=== PATIENT | female | born 1995 | race Hispanic/Latino ===

== ENCOUNTER 2018-01-30 21:51 | Emergency (ER) | payer SELFPAY ==
[2018-01-30] MEDS ORDERED: DEXAMETHASONE SOD PHOSPHATE 10MG/ML 1ML VIAL ONE (22:25)
[2018-01-30 23:17] LABS: RAPID GROUP A STREP NEGATIVE (NEGATIVE)
== END 2018-01-31 00:15 | disposition home or self-care (01) ==
LOC: EDH 21:51
DX: J02.9 Acute pharyngitis, unspecified (principal); J02.8 Acute pharyngitis due to other specified organisms
CPT/HCPCS: 87804 ×2; 87880; 96372; 99284; J1100

== ENCOUNTER 2018-03-25 12:57 | Emergency (ER) | payer OTHER ==
[2018-03-25 13:32] LABS: APPEARANCE,URINE Clear (CLEAR); BILIRUBIN,URINE Negative (NEGATIVE); COLOR,URINE Yellow (YELLOW); GLUCOSE, URINE (UA) >=1000 mg/dL (NEGATIVE); KETONES,URINE >=80 mg/dL (NEGATIVE); LEUKOCYTE ESTERASE ,URINE Trace (NEGATIVE); NITRATE,URINE Negative (NEGATIVE); OCCULT BLOOD,URINE Negative (NEGATIVE); PH,URINE 5.5 (5.0-8.0); PROTEIN,URINE Negative (NEGATIVE); UROBILINOGEN,URINE 0.2 mg/dL (0.2-1.0)
[2018-03-25 13:43] LABS: BACTERIA,URINE Rare /HPF (None Seen); MUCUS,URINE Rare LPF (None Seen); RBC,URINE 0-1 /HPF (0-1); SQUAMOUS EPITHELIAL CELL,UR Few /HPF (0-2); YEAST,URINE BUDDING Few /HPF (None Seen)
[2018-03-25] MEDS ORDERED: PHENAZOPYRIDINE HCL 200 MG TABLET ONE (13:48)
== END 2018-03-25 14:28 | disposition home or self-care (01) ==
LOC: EDH 12:57
DX: N39.0 Urinary tract infection, site not specified (principal)
CPT/HCPCS: 81001; 81025

== ENCOUNTER 2018-08-16 10:01 | Emergency (ER) | payer MEDICAID, OTHER ==
[2018-08-16 10:26] LABS: BILIRUBIN,URINE Negative (NEGATIVE); COLOR,URINE Yellow (YELLOW); GLUCOSE, URINE (UA) Negative (NEGATIVE); KETONES,URINE Negative (NEGATIVE); LEUKOCYTE ESTERASE ,URINE Moderate (NEGATIVE); NITRATE,URINE Positive (NEGATIVE); OCCULT BLOOD,URINE Negative (NEGATIVE); PROTEIN,URINE Negative (NEGATIVE); UROBILINOGEN,URINE 0.2 mg/dL (0.2-1.0)
[2018-08-16 10:28] LABS: APPEARANCE,URINE SLIGHTLY CLOUDY (CLEAR); HCG,QUAL RESULT NEGATIVE (NEGATIVE)
[2018-08-16 10:33] LABS: AMPHET/METH SCREEN,URINE NEGATIVE (NEGATIVE); BARBITURATE SCREEN, URINE NEGATIVE (NEGATIVE); BENZODIAZEPINES SCREEN,URINE POSITIVE (NEGATIVE); CANNABINOID SCREEN,URINE POSITIVE (NEGATIVE); COCAINE SCREEN,URINE NEGATIVE (NEGATIVE); OPIATE SCREEN,URINE NEGATIVE (NEGATIVE); PHENCYCLIDINE SCREEN,URINE NEGATIVE (NEGATIVE)
[2018-08-16 10:43] LABS: BACTERIA,URINE Moderate /HPF (None Seen); MUCUS,URINE Moderate LPF (None Seen); RBC,URINE None Seen /HPF (0-1)
== END 2018-08-16 11:12 | disposition home or self-care (01) ==
LOC: EDH 10:01
DX: F12.10 Cannabis abuse, uncomplicated (principal); F13.10 Sedative, hypnotic or anxiolytic abuse, uncomplicated; N39.0 Urinary tract infection, site not specified; R42 Dizziness and giddiness
CPT/HCPCS: 80305; 81001; 81025

== ENCOUNTER 2018-08-17 12:25 | Emergency (ER) | payer MEDICAID | END 2018-08-17 13:02 | disposition home or self-care (01) | LOC: EDH 12:25 | DX: M79.10 Myalgia, unspecified site (principal); Z91.14 Patient's other noncompliance with medication regimen ==

== ENCOUNTER 2018-08-18 09:55 | Emergency (ER) | payer MEDICAID | END 2018-08-18 10:29 | disposition home or self-care (01) | LOC: EDH 09:55 | DX: R51 Headache (principal); F19.10 Other psychoactive substance abuse, uncomplicated; Z76.5 Malingerer [conscious simulation] ==

== ENCOUNTER 2020-05-30 08:53 | Emergency (ER) | payer MEDICAID ==
[2020-05-30] MEDS ORDERED: CEFTRIAXONE SODIUM 2 GM VIAL ONE (09:36)
[2020-05-30] MEDS ORDERED: LIDOCAINE HCL MPF 1% 5ML VIAL ONE (09:38)
== END 2020-05-30 10:36 | disposition home or self-care (01) ==
LOC: EDH 08:53
DX: H66.93 Otitis media, unspecified, bilateral (principal); J02.9 Acute pharyngitis, unspecified; Z33.1 Pregnant state, incidental; Z20.828 Contact with and (suspected) exposure to other viral communicable diseases
CPT/HCPCS: 81025; 96372; 99283; J0696; J3490; U0003

== ENCOUNTER 2020-07-25 10:13 | Emergency (ER) | payer MEDICAID ==
[2020-07-25 11:04] LABS: RAPID GROUP A STREP POSITIVE (NEGATIVE)
[2020-07-25] MEDS ORDERED: DEXAMETHASONE SOD PHOSPHATE 10MG/ML 1ML VIAL ONE (11:18)
[2020-07-25] MEDS ORDERED: PENICILLIN G BENZATHINE LA 1.2 MILUNITS/2 ML SYG ONE (11:19)
== END 2020-07-25 11:35 | disposition home or self-care (01) ==
LOC: EDH 10:13
DX: O26.891 Other specified pregnancy related conditions, first trimester (principal); J02.9 Acute pharyngitis, unspecified; Z20.828 Contact with and (suspected) exposure to other viral communicable diseases; J34.89 Other specified disorders of nose and nasal sinuses; F13.10 Sedative, hypnotic or anxiolytic abuse, uncomplicated; Z3A.01 Less than 8 weeks gestation of pregnancy
CPT/HCPCS: 87426; 87804 ×2; 87880; 96372; 99283; J0561; J1100; U0003

== ENCOUNTER 2021-04-10 13:37 | Emergency (ER) | payer MEDICAID ==
[~2021-04-10] VITALS: Ht 152.4 cm; Wt 72.6 kg
[2021-04-10] MEDS ORDERED: CEFTRIAXONE 1G VIAL IM STA (14:31)
[2021-04-10] MEDS ORDERED: ACETAMINOPHEN 500 MG TABLET PO ONE (14:45)
[2021-04-10 14:51] LABS: APPEARANCE,URINE Clear (CLEAR); BILIRUBIN,URINE Negative (NEGATIVE); COLOR,URINE Yellow (YELLOW); GLUCOSE, URINE (UA) Negative (NEGATIVE); KETONES,URINE Trace mg/dL (NEGATIVE); LEUKOCYTE ESTERASE ,URINE Trace (NEGATIVE); NITRATE,URINE Positive (NEGATIVE); OCCULT BLOOD,URINE Negative (NEGATIVE); PROTEIN,URINE Negative (NEGATIVE)
[2021-04-10 14:53] LABS: HCG,QUAL RESULT POSITIVE (NEGATIVE)
[2021-04-10] MEDS ORDERED: LIDOCAINE HCL-MPF 1% 2ML VIAL ONE (14:55)
[2021-04-10 14:58] LABS: BACTERIA,URINE Moderate /HPF (None Seen); RBC,URINE 0-1 /HPF (0-1)
[2021-04-10 14:59] LABS: MUCUS,URINE Rare LPF (None Seen); SQUAMOUS EPITHELIAL CELL,UR Rare /HPF (0-2)
[2021-04-10 15:03] LABS: HYALINE CASTS, URINE 0-1 /LPF (0-1 /LPF)
[2021-04-10] MEDS ORDERED: CEPH500B PO (15:12)
[2021-04-10] MEDS ORDERED: PREN-61 PO (15:12)
[2021-04-10] MEDS ORDERED: ACET-2247 PO (15:12)
[2021-04-10 15:19] VITALS: BP 139/83
== END 2021-04-10 15:27 | disposition home or self-care (01) ==
LOC: EDH 13:45
DX: O23.41 Unspecified infection of urinary tract in pregnancy, first trimester (principal); O99.511 Diseases of the respiratory system complicating pregnancy, first trimester; J06.9 Acute upper respiratory infection, unspecified; Z3A.01 Less than 8 weeks gestation of pregnancy
CPT/HCPCS: 81001; 81025; 87077; 87088; 87186; 87880; 96372; 99283; J0696; J3490

== ENCOUNTER 2021-07-16 18:22 | Emergency (ER) | payer MEDICAID ==
[~2021-07-16] VITALS: Ht 157.5 cm; Wt 90.7 kg
[~2021-07-16 18:22] MED LIST: ACET-2247 PO; CEPH500B PO; PREN-61 PO
[2021-07-16 18:24] VITALS: BP 141/89
[2021-07-16] MEDS ORDERED: CEFTRIAXONE 1G VIAL IM STA (19:29)
[2021-07-16] MEDS ORDERED: LIDOCAINE HCL-MPF 1% 2ML VIAL ONE (19:54)
[2021-07-16] MEDS ORDERED: BUDE8.43 NS (20:32)
[2021-07-16] MEDS ORDERED: AMOX-429 PO (20:32)
[2021-07-16 20:45] VITALS: BP 136/82
== END 2021-07-16 20:53 | disposition home or self-care (01) ==
LOC: EDH 18:22
DX: O26.891 Other specified pregnancy related conditions, first trimester (principal); J32.9 Chronic sinusitis, unspecified; Z20.822 Contact with and (suspected) exposure to COVID-19; Z3A.01 Less than 8 weeks gestation of pregnancy; Z79.899 Other long term (current) drug therapy
CPT/HCPCS: 87635; 87804 ×2; 87880; 96372; 99283; C9803; J0696; J3490

== ENCOUNTER 2021-08-31 16:03 | Emergency (ER) | payer MEDICAID ==
[~2021-08-31] VITALS: Ht 160 cm; Wt 113.4 kg
[~2021-08-31 16:03] MED LIST changes: +AMOX-429 PO; +BUDE8.43 NS
[2021-08-31 16:06] VITALS: BP 127/81
[2021-09-01] MEDS ORDERED: AMOX-429 PO (10:04)
== END 2021-08-31 21:08 | disposition left against medical advice (07) ==
LOC: EDH 16:03
DX: J02.9 Acute pharyngitis, unspecified (principal); Z53.21 Procedure and treatment not carried out due to patient leaving prior to being seen by health care provider

== ENCOUNTER 2021-09-01 07:57 | Emergency (ER) | payer MEDICAID ==
[~2021-09-01] VITALS: Ht 167.6 cm; Wt 113.4 kg
[2021-09-01 08:41] VITALS: BP 148/103
[2021-09-01] MEDS ORDERED: CEFTRIAXONE 1G VIAL ONE (09:56)
[2021-09-01] MEDS ORDERED: CEFTRIAXONE 1G VIAL IM ONE (10:00)
[2021-09-01] MEDS ORDERED: AMOX-429 PO (10:04)
== END 2021-09-01 10:13 | disposition home or self-care (01) ==
LOC: EEVIPCON 07:57 → EDH 07:57
DX: J03.90 Acute tonsillitis, unspecified (principal); Z20.822 Contact with and (suspected) exposure to COVID-19; Z79.899 Other long term (current) drug therapy
CPT/HCPCS: 87635; 87804 ×2; 87880; 96372; 99283; C9803; J0696

== ENCOUNTER 2021-12-28 18:03 | Emergency (ER) | payer MEDICAID ==
[~2021-12-28] VITALS: Ht 152.4 cm; Wt 97.5 kg
[2021-12-28 19:00] LABS: BASOPHILS % (AUTO) 0.2 % (0.0-5.0); EOSINOPHILS % (AUTO) 0.9 % (0.0-8.0); HEMATOCRIT 30.8 % (36-48); LYMPHOCYTES % (AUTO) 23.6 % (21.0-51.0); MEAN CORPUSCULAR HEMOGLOBIN 25.1 pg (27.0-33.0); MEAN CORPUSCULAR HGB CONC 30.2 g/dL (32.0-36.0); MONOCYTES % (AUTO) 3.8 % (3.0-13.0); PLATELET COUNT (AUTO) 499 K/uL (130-400); RED BLOOD CELL COUNT(AUTO) 3.71 MIL/uL (4.00-5.50); RED CELL DISTRIBUTION WIDTH 13.1 % (11.0-15.5)
[2021-12-28] MEDS ORDERED: CLINDAMYCIN IVPB 600MG/50ML 50 ML IV SCH (19:00)
[2021-12-28] MEDS ORDERED: ONDANSETRON 4MG INJ IVP ONE (19:00)
[2021-12-28] MEDS ORDERED: MORPHINE 2 MG SYG IVP ONE (19:00)
[2021-12-28 19:17] LABS: ALBUMIN 3.4 g/dL (3.5-5.0); BILIRUBIN,TOTAL 0.2 mg/dL (0.2-1.0); CREATININE 0.6 mg/dL (0.5-1.5); POTASSIUM 3.8 mmol/L (3.5-5.1); TOTAL PROTEIN, SERUM 8.5 g/dL (6.0-8.3)
[2021-12-28] MEDS ORDERED: IOHEXOL-350 75 ML VIAL IV ONE (19:20)
[2021-12-28] MEDS ORDERED: IBUP-1552 PO (20:19)
[2021-12-28] MEDS ORDERED: CLIN-141 PO (20:19)
[2021-12-28 20:24] VITALS: BP 144/92
== END 2021-12-28 20:41 | disposition home or self-care (01) ==
LOC: EDH 18:03
DX: K02.9 Dental caries, unspecified (principal); K05.10 Chronic gingivitis, plaque induced; L03.211 Cellulitis of face; E66.01 Morbid (severe) obesity due to excess calories; Z68.41 Body mass index [BMI] 40.0-44.9, adult; Z79.1 Long term (current) use of non-steroidal anti-inflammatories (NSAID)
CPT/HCPCS: 36415; 70487; 80053; 81025; 83605; 85025; 87040 ×2; 96365; 96375; 99285; J2405; J3490; Q9967

== ENCOUNTER 2022-01-18 00:43 | Emergency (ER) | payer MEDICAID ==
[~2022-01-18] VITALS: Ht 167.6 cm; Wt 113.4 kg
[~2022-01-18 00:43] MED LIST changes: +CLIN-141 PO; +IBUP-1552 PO
[2022-01-18 01:29] VITALS: BP 121/68
[2022-01-18 01:39] LABS: CREATININE 0.7 mg/dL (0.5-1.5); POTASSIUM 3.6 mmol/L (3.5-5.1)
[2022-01-18 01:44] LABS: ALBUMIN 3.7 g/dL (3.5-5.0); BILIRUBIN,TOTAL 0.2 mg/dL (0.2-1.0); TOTAL PROTEIN, SERUM 8.8 g/dL (6.0-8.3)
[2022-01-18 01:54] LABS: BASOPHILS % (AUTO) 0.2 % (0.0-5.0); EOSINOPHILS % (AUTO) 1.5 % (0.0-8.0); HEMATOCRIT 31.8 % (36-48); LYMPHOCYTES % (AUTO) 28.7 % (21.0-51.0); MEAN CORPUSCULAR HEMOGLOBIN 25.3 pg (27.0-33.0); MEAN CORPUSCULAR HGB CONC 31.1 g/dL (32.0-36.0); MEAN CORPUSCULAR VOLUME 81.3 fL (79-99); MONOCYTES % (AUTO) 3.5 % (3.0-13.0); NEUTROPHILS % (AUTO) 65.5 % (40.0-77.0); PLATELET COUNT (AUTO) 456 K/uL (130-400); RED BLOOD CELL COUNT(AUTO) 3.91 MIL/uL (4.00-5.50); RED CELL DISTRIBUTION WIDTH 14.3 % (11.0-15.5)
[2022-01-18] MEDS ORDERED: IBUP-2070 PO (02:46)
[2022-01-18] MEDS ORDERED: METH4TAB3 PO (02:46)
[2022-01-18] MEDS ORDERED: AMOX1TAB16 PO (02:46)
[2022-01-18] MEDS: DEXAMETHASONE 4 MG TAB PO ONE (02:50)
[2022-01-18] MEDS: IBUPROFEN 600 MG TABLET PO ONE (02:50)
[2022-01-18] MEDS: CEFTRIAXONE 1G VIAL IM ONE (02:50)
[2022-01-18] MEDS: LIDOCAINE HCL MPF 1% 5ML VIAL ONE (02:50)
== END 2022-01-18 02:57 | disposition home or self-care (01) ==
LOC: EDH 00:43
DX: K04.7 Periapical abscess without sinus (principal); L03.211 Cellulitis of face; E66.01 Morbid (severe) obesity due to excess calories; Z68.41 Body mass index [BMI] 40.0-44.9, adult; Z79.1 Long term (current) use of non-steroidal anti-inflammatories (NSAID); Z79.52 Long term (current) use of systemic steroids
CPT/HCPCS: 36415; 80053; 85025; 96372; 99283; J0696; J3490; J8540

== ENCOUNTER 2022-03-13 10:24 | Emergency (ER) | payer MEDICAID ==
[~2022-03-13] VITALS: Ht 162.6 cm; Wt 99.8 kg
[~2022-03-13 10:24] MED LIST changes: +AMOX1TAB16 PO; +IBUP-2070 PO; +METH4TAB3 PO
[2022-03-13] MEDS ORDERED: LIDOCAINE HCL 1% 20 ML VIAL INJ STA (11:27)
[2022-03-13] MEDS ORDERED: LIDOCAINE HCL 400MG/20ML VIAL ONE (11:29)
[2022-03-13] MEDS ORDERED: NAPR-1196 PO (11:42)
[2022-03-13] MEDS ORDERED: CLIN-141 PO (11:42)
[2022-03-13 12:01] VITALS: BP 123/84
== END 2022-03-13 12:06 | disposition home or self-care (01) ==
LOC: EDH 10:24
DX: K04.7 Periapical abscess without sinus (principal); E66.01 Morbid (severe) obesity due to excess calories; Z79.1 Long term (current) use of non-steroidal anti-inflammatories (NSAID); Z79.52 Long term (current) use of systemic steroids; Z68.37 Body mass index [BMI] 37.0-37.9, adult
CPT/HCPCS: 41800; 99284; J3490

== ENCOUNTER 2023-03-15 03:49 | Emergency (ER) | payer MEDICAID ==
[~2023-03-15] VITALS: Ht 162.6 cm; Wt 113.4 kg
[~2023-03-15 03:49] MED LIST changes: +NAPR-1196 PO
[2023-03-15 04:05] VITALS: BP 132/81
[2023-03-15] MEDS ORDERED: IBUP-1493 PO (04:41)
[2023-03-16] MEDS ORDERED: NIRM1TAB PO (11:30)
== END 2023-03-15 05:44 | disposition home or self-care (01) ==
LOC: EDH 03:49
DX: U07.1 COVID-19 (principal); E66.01 Morbid (severe) obesity due to excess calories; Z79.1 Long term (current) use of non-steroidal anti-inflammatories (NSAID); Z79.52 Long term (current) use of systemic steroids; Z68.41 Body mass index [BMI] 40.0-44.9, adult
CPT/HCPCS: 99285; 87635; 87880; 87804 ×2; C9803

== ENCOUNTER 2023-03-16 10:39 | Emergency (ER) | payer MEDICAID ==
[~2023-03-16] VITALS: Ht 142.2 cm; Wt 113.4 kg
[~2023-03-16 10:39] MED LIST changes: +IBUP-1493 PO
[2023-03-16 10:43] VITALS: BP 123/82
[2023-03-16] MEDS ORDERED: NIRM1TAB PO (11:30)
== END 2023-03-16 11:37 | disposition home or self-care (01) ==
LOC: EDH 10:39
DX: U07.1 COVID-19 (principal); E66.01 Morbid (severe) obesity due to excess calories; Z79.1 Long term (current) use of non-steroidal anti-inflammatories (NSAID); Z79.52 Long term (current) use of systemic steroids; Z68.43 Body mass index [BMI] 50.0-59.9, adult
CPT/HCPCS: 99283; 87635; 87880; 87804 ×2; C9803

== ENCOUNTER 2023-03-31 01:06 | Emergency (ER) | payer MEDICAID ==
[~2023-03-31 01:06] MED LIST changes: +NIRM1TAB PO
[2023-03-31 01:14] VITALS: BP 119/86
== END 2023-03-31 01:30 | disposition left against medical advice (07) ==
LOC: EDH 01:06
DX: R42 Dizziness and giddiness (principal); Z53.21 Procedure and treatment not carried out due to patient leaving prior to being seen by health care provider
CPT/HCPCS: 99281

== ENCOUNTER 2023-09-13 15:36 | Emergency (ER) | payer MEDICAID ==
[~2023-09-13] VITALS: Ht 167.6 cm; Wt 95.3 kg
[2023-09-13 16:14] LABS: BASOPHILS # (AUTO) 0.03 K/uL (0.00-0.20); BASOPHILS % (AUTO) 0.2 % (0.0-5.0); EOSINOPHILS # (AUTO) 0.03 K/uL (0.00-0.70); EOSINOPHILS % (AUTO) 0.2 % (0.0-8.0); HEMATOCRIT 31.7 % (36-48); IMMATURE GRANULOCYTE ABSOLUTE 0.06 K/uL (0-1); LYMPHOCYTES # (AUTO) 1.9 K/uL (1.0-4.8); LYMPHOCYTES % (AUTO) 14.5 % (21.0-51.0); MEAN CORPUSCULAR HEMOGLOBIN 28.5 pg (27.0-33.0); MEAN CORPUSCULAR HGB CONC 33.1 g/dL (32.0-36.0); MEAN CORPUSCULAR VOLUME 85.9 fL (79-99); MONOCYTES # (AUTO) 0.5 K/uL (0.1-1.0); MONOCYTES % (AUTO) 3.7 % (3.0-13.0); NEUTROPHILS # (AUTO) 10.6 K/uL (1.8-7.7); NEUTROPHILS % (AUTO) 80.9 % (40.0-77.0); PLATELET COUNT (AUTO) 424 K/uL (130-400); RED BLOOD CELL COUNT(AUTO) 3.69 MIL/uL (4.00-5.50); RED CELL DISTRIBUTION WIDTH 12.7 % (11.0-15.5); WHITE BLOOD COUNT (AUTO) 13.1 K/uL (4.8-10.8)
[2023-09-13 16:17] LABS: BILIRUBIN,URINE SMALL mg/dL (NEGATIVE); COLOR,URINE YELLOW (YELLOW); GLUCOSE, URINE (UA) NEGATIVE (NEGATIVE); KETONES,URINE 5 mg/dL (NEGATIVE); LEUKOCYTE ESTERASE ,URINE NEGATIVE Leu/uL (NEGATIVE); NITRATE,URINE NEGATIVE (NEGATIVE); OCCULT BLOOD,URINE NEGATIVE (NEGATIVE); PH,URINE 5.5 (5.0-8.0); PROTEIN,URINE 30 mg/dL (NEGATIVE)
[2023-09-13 16:18] LABS: HCG,QUALITATIVE URINE POSITIVE (NEGATIVE)
[2023-09-13 16:20] LABS: ADD UA MICROSCOPIC YES; APPEARANCE,URINE CLOUDY (CLEAR)
[2023-09-13 16:25] LABS: BACTERIA,URINE Moderate /HPF (None Seen); RBC,URINE 0-1 /HPF (0-1)
[2023-09-13 16:26] LABS: SQUAMOUS EPITHELIAL CELL,UR Rare /HPF (0-2); WBC,URINE 0-1 /HPF (0-1)
[2023-09-13 16:29] LABS: CARBON DIOXIDE 24 mmol/L (21-32); CHLORIDE 100 mmol/L (101-111); CREATININE 0.6 mg/dL (0.5-1.5); GLOMERULAR FILTR. RATE CALC 125 mL/min (>90); GLUCOSE,RANDOM 141 mg/dL (70-105); POTASSIUM 3.4 mmol/L (3.5-5.1); SODIUM SERUM 135 mmol/L (136-145); UREA NITROGEN, BLOOD 10 mg/dL (7-18)
[2023-09-13 16:31] LABS: AMPHET/METH SCREEN,URINE NEGATIVE (NEGATIVE); BARBITURATE SCREEN, URINE NEGATIVE (NEGATIVE); BENZODIAZEPINES SCREEN,URINE NEGATIVE (NEGATIVE); CANNABINOID SCREEN,URINE POSITIVE (NEGATIVE); COCAINE SCREEN,URINE POSITIVE (NEGATIVE); OPIATE SCREEN,URINE NEGATIVE (NEGATIVE); PHENCYCLIDINE SCREEN,URINE NEGATIVE (NEGATIVE)
[2023-09-13 16:33] LABS: ALANINE AMINOTRANSFERASE 42 U/L (12-78); ALBUMIN 3.3 g/dL (3.5-5.0); ASPARTATE AMINOTRANSFERASE 26 U/L (10-37); BILIRUBIN,TOTAL 0.5 mg/dL (0.2-1.0); TOTAL PROTEIN, SERUM 8.6 g/dL (6.0-8.3)
[2023-09-13 16:35] LABS: ACETAMINOPHEN < 1 mcg/mL (10-30); SALICYLATE < 2.8 mg/dL (2.8-20.0)
[2023-09-14 02:27] VITALS: BP 128/80; PULSE 78; RESP 16; O2SAT 98
[2023-09-14] MEDS ORDERED: KCL 20 MEQ ERTAB PO ONE (02:30)
== END 2023-09-14 02:38 ==
LOC: EDH 15:36
DX: O26.891 Other specified pregnancy related conditions, first trimester (principal); R45.851 Suicidal ideations; F41.9 Anxiety disorder, unspecified; F32.A Depression, unspecified; E66.01 Morbid (severe) obesity due to excess calories; O24.111 Pre-existing type 2 diabetes mellitus, in pregnancy, first trimester; Z79.1 Long term (current) use of non-steroidal anti-inflammatories (NSAID); Z68.33 Body mass index [BMI] 33.0-33.9, adult
CPT/HCPCS: 99285; 76801; 80053; 80305; 85025; 86900; 86901; 87077; 87088; 87186; 81001; 81025; 36415; G0481

== ENCOUNTER 2024-10-14 13:17 | Emergency (ER) | payer MEDICAID ==
[~2024-10-14] VITALS: Ht 167.6 cm; Wt 99.8 kg
[2024-10-14 14:41] LABS: ADD UA MICROSCOPIC YES; APPEARANCE,URINE CLEAR (CLEAR); BILIRUBIN,URINE NEGATIVE (NEGATIVE); COLOR,URINE LIGHT-YELLOW (YELLOW); GLUCOSE, URINE (UA) >=1000 mg/dL (NEGATIVE); KETONES,URINE 10 mg/dL (NEGATIVE); LEUKOCYTE ESTERASE ,URINE 250 Leu/uL (NEGATIVE); NITRATE,URINE NEGATIVE (NEGATIVE); OCCULT BLOOD,URINE NEGATIVE (NEGATIVE); PH,URINE 5.5 (5.0-8.0); PROTEIN,URINE NEGATIVE (NEGATIVE); UROBILINOGEN,URINE 0.2 mg/dL (0.2-1.0)
[2024-10-14 14:59] LABS: BACTERIA,URINE RARE /HPF (None Seen); MUCUS,URINE RARE LPF (None Seen); SQUAMOUS EPITHELIAL CELL,UR MOD /HPF (0-2)
[2024-10-14 15:39] LABS: BASOPHILS # (AUTO) 0.04 K/uL (0.00-0.20); BASOPHILS % (AUTO) 0.5 % (0.0-5.0); EOSINOPHILS # (AUTO) 0.18 K/uL (0.00-0.70); EOSINOPHILS % (AUTO) 2.5 % (0.0-8.0); HEMATOCRIT 36.6 % (36-48); IMMATURE GRANULOCYTE ABSOLUTE 0.06 K/uL (0-1); LYMPHOCYTES # (AUTO) 2.3 K/uL (1.0-4.8); LYMPHOCYTES % (AUTO) 31.4 % (21.0-51.0); MEAN CORPUSCULAR HEMOGLOBIN 26.9 pg (27.0-33.0); MEAN CORPUSCULAR VOLUME 84.1 fL (79-99); MONOCYTES # (AUTO) 0.3 K/uL (0.1-1.0); MONOCYTES % (AUTO) 4.5 % (3.0-13.0); NEUTROPHILS # (AUTO) 4.4 K/uL (1.8-7.7); NEUTROPHILS % (AUTO) 60.3 % (40.0-77.0); PLATELET COUNT (AUTO) 337 K/uL (130-400); RED BLOOD CELL COUNT(AUTO) 4.35 MIL/uL (4.00-5.50); RED CELL DISTRIBUTION WIDTH 13.2 % (11.0-15.5); WHITE BLOOD COUNT (AUTO) 7.3 K/uL (4.8-10.8)
[2024-10-14 16:11] LABS: CREATININE 0.7 mg/dL (0.5-1.0); POTASSIUM 3.8 mmol/L (3.5-5.1)
[2024-10-14] MEDS ORDERED: FLUC150T48 PO (16:21)
[2024-10-14] MEDS ORDERED: SULF1TAB42 PO (16:21)
--- NOTE | 2024-10-14 16:21 | ERN ---
General Chief Complaint: Vaginal Problems/Bleeding Stated Complaint: VAG INFECTION Time Seen by MD: 14:54 History of Present Illness Initial Comments 29-year-old female came in for vaginal pruritus without any discharge. Patient denies fever chills. Patient denies abdominal pain. Patient otherwise has no concerns. Allergies: Coded Allergies: No Known Allergies (Unverified Allergy, Unknown, 04/10/21) Home Meds Active Scripts Nirmatrelvir/Ritonavir (Paxlovid Co-Pack (Eua)) 1 Each Tablet, 1 EACH PO BID for 5 Days, #1 BOX Prov:TALAT WHEATLEY NP 03/16/23 Ibuprofen (Motrin/Advil) 800 Mg Tab, 800 MG PO TID, #30 TAB Prov:ARLINE DELANEY MD 03/15/23 Naproxen (Naproxen) 250 Mg Tablet, 500 MG PO BID for 7 Days, #14 TAB Prov:SHADY CHOW MD 03/13/22 Clindamycin HCl (Clindamycin HCl) 300 Mg Capsule, 300 MG PO QID for 7 Days, #28 CAP Prov:SHADY CHOW MD 03/13/22 Ibuprofen (Ibuprofen) 600 Mg Tablet, 600 MG PO Q6H PRN for PAIN, #30 TAB Prov:JOHNNY LARIOS MD 01/18/22 Methylprednisolone (Medrol) 4 Mg Tab.ds.pk, 4 MG PO AD, #1 KIT Prov:JOHNNY LARIOS MD 01/18/22 Amoxicillin/Potassium Clav (Amox Tr-K Clv 875-125 mg Tab) 1 Each Tablet, 1 EACH PO BID for 10 Days, #20 TAB Prov:JOHNNY LARIOS MD 01/18/22 Ibuprofen (Ibu) 400 Mg Tablet, 800 MG PO TID, #60 TAB Prov:WENDY WEISS 12/28/21 Clindamycin HCl (Clindamycin HCl) 300 Mg Capsule, 1 CAP PO QID for 10 Days, #40 CAP 0 Refills Prov:WENDY WEISS 12/28/21 Amoxicillin/Potassium Clav (Augmentin 875-125 Tablet) 1 Each Tablet, 1 TAB PO BID for 7 Days, #14 TAB 0 Refills Prov:JOHNNY LARIOS MD 09/01/21 Budesonide (Rhinocort Allergy) 8.43 Ml [place].pump, 1 SPRY NS BID, #1 BOTTLE Prov:TALAT AN NP 07/16/21 Amoxicillin/Potassium Clav (Augmentin 875-125 Tablet) 1 Each Tablet, 1 TAB PO BID for 10 Days, #20 TAB 0 Refills Prov:TALAT AN NP 07/16/21 Vit No.78/Iron/FA (Prenatabs FA Tablet) 1 Each Tablet, 1 EACH PO DAILY, #100 TAB Prov:WENDY WEISS 04/10/21 Acetaminophen (Tylenol) 325 Mg Tablet, 650 MG PO QID, #50 TAB Prov:WENDY WEISS 04/10/21 Cephalexin Monohydrate (Keflex) 500 Mg Cap, 500 MG PO TID, #21 CAP Prov:WENDY WEISS 04/10/21 Past Medical History Past Medical History: No Pertinent History Medical History Other: Morbid obese Past Surgical History: None Family History Family History: Negative Social History Social History: Negative, Lives with family Female( History) History: Not Applicable : 3 Para: 2 ROS Dictation CONSTITUTIONAL: Negative except for HPI HEAD/FACE: Negative except for HPI EENT: Negative except for HPI RESPIRATORY: Negative except for HPI GASTROINTESTINAL/ABDOMINAL: Negative except for HPI GENITOURINARY: Negative except for HPI MUSCULOSKELETAL: Negative except for HPI INTEGUMENTARY: Negative except for HPI NEUROLOGICAL/PSYCH: Negative except for HPI HEMATOLOGIC/LYMPHATIC: Negative except for HPI All Systems Negative, Except as noted above. 13 point review of systems assessed and all negative except for above. Physical Exam Physical Exam Dictation Vital Signs reviewed General Appearance: Alert, oriented x 3, no acute distress, well developed, nourished. Head and Face: non-traumatic. Eyes: PERRL, pink conjunctivas, eyelid no trauma, anterior chamber with arcus senilis. Ears: Pinnas intact and no signs of trauma or erythema ear canals clear and no discharge TM no erythema Nose: No discharge, no bleeding. Oropharynx: Mouth normal, tongue pink, pharynx clear,no erythema, tonsils no exudates, no abscesses noted, mucous membrane moist Neck: Supple, non-tender, no thyromegaly, no masses, no JVD, no bruits Breast:Deferred Chest:No tenderness, no crepitus, no paradoxical movement, no retractions Lungs:Clear, well-ventilated, symmetric, no rales, no wheezing, no rhonchi, no stridor, good breath sounds bilaterally Heart: Regular rate, regular rhythm, no murmur, no gallops Vascular: no peripheral edema, Abdomen: Soft, positive bowel sounds, nondistended, no guarding, nontender, no rebound, no masses no hepatomegaly, no splenomegaly, no Menchaca's sign, no hernias. Rectal: Deferred Genital: Deferred Neurological: Normal speech, motor function intact, sensory function intact Musculoskeletal: Neck nontender, full range of motion, back nontender, full range of motion, Extremities: nontender, full range of motion Skin: Color pink, dry, no turgor, no rash, no lacerations, no abrasions, no contusions. Lymphatic: Deferred Results Laboratory and Microbiology Lab and Micro Result Laboratory Tests Test 10/14/24 14:21 10/14/24 15:18 Urine Color LIGHT-YELLOW (YELLOW) Urine Appearance CLEAR (CLEAR) Urine pH 5.5 (5.0-8.0) Urine Specific [place] 1.041 (1.001-1.031) Urine Protein NEGATIVE mg/dL (NEGATIVE) Urine Glucose (UA) >=1000 mg/dL (NEGATIVE) H Urine Ketones 10 mg/dL (NEGATIVE) H Urine Occult Blood NEGATIVE (NEGATIVE) Urine Nitrate NEGATIVE (NEGATIVE) Urine Bilirubin NEGATIVE mg/dL (NEGATIVE) Urine Urobilinogen 0.2 mg/dL (0.2-1.0) Urine Leukocyte Esterase 250 Jose/uL (NEGATIVE) H Urine RBC 2-5 /HPF (0-1) H Urine WBC 6-10 /HPF (0-1) H Urine Squamous Epithelial Cells MOD /HPF (0-2) Urine Bacteria RARE /HPF (None Seen) White Blood Count 7.3 K/uL (4.8-10.8) Red Blood Count 4.35 MIL/uL (4.00-5.50) Hemoglobin 11.7 g/dL (12.0-16.0) L Hematocrit 36.6 % (36-48) Mean Corpuscular Volume 84.1 fL (79-99) Mean Corpuscular Hemoglobin 26.9 pg (27.0-33.0) L Mean Corpuscular Hemoglobin Concent 32.0 g/dL (32.0-36.0) Red Cell Distribution Width 13.2 % (11.0-15.5) Platelet Count 337 K/uL (130-400) Mean Platelet Volume 10.3 fL (7.5-10.5) Immature Granulocyte % (Auto) 0.8 % (0-1) Neutrophils (%) (Auto) 60.3 % (40.0-77.0) Lymphocytes (%) (Auto) 31.4 % (21.0-51.0) Monocytes (%) (Auto) 4.5 % (3.0-13.0) Eosinophils (%) (Auto) 2.5 % (0.0-8.0) Basophils (%) (Auto) 0.5 % (0.0-5.0) Neutrophils # (Auto) 4.4 K/uL (1.8-7.7) Lymphocytes # (Auto) 2.3 K/uL (1.0-4.8) Monocytes # (Auto) 0.3 K/uL (0.1-1.0) Eosinophils # (Auto) 0.18 K/uL (0.00-0.70) Basophils # (Auto) 0.04 K/uL (0.00-0.20) Absolute Immature Granulocyte (auto 0.06 K/uL (0-1) Nucleated Red Blood Cells 0.0 % (0.0-0.19) Sodium Level 137 mmol/L (136-145) Potassium Level 3.8 mmol/L (3.5-5.1) Chloride Level 102 mmol/L (101-111) Carbon Dioxide Level 27 mmol/L (21-32) Blood Urea Nitrogen 3 mg/dL (7-18) L Creatinine 0.7 mg/dL (0.5-1.0) Glomerular Filtration Rate Calc 119 mL/min (>90) Random Glucose 321 mg/dL (70-105) H Total Calcium 9.0 mg/dL (8.5-10.1) Serum Test, Qualitative NEGATIVE (NEGATIVE) MDM MDM: Differential diagnosis: There are no social concerns with this patient. Prescription drug management Prescriptions will include: Medical management and examination interpretation discussions were had by me with other qualified healthcare professionals as indicated for the patient's care. Patient does not have primary care physician and she has been advised about her elevated blood sugar level which corresponds to vaginal yeast infection. Patient has been advised to follow up with the primary care physician and has been given a primary care physician to follow up. Patient understands and agrees with plan of care. ED Course Orders Procedure Category Date Status Time Urinalysis Profile LAB 10/14/24 Complete 13:51 Culture Urine SOHAM 10/14/24 In Process 14:41 Cbc With Differential LAB 10/14/24 Complete 14:58 Basic Metabolic Panel LAB 10/14/24 In Process 14:58 Hcg,Quantitative LAB 10/14/24 In Process 14:58 ,Urine Test LAB 10/14/24 Logged 14:58 Testing, LAB 10/14/24 Complete Serum Hcg 14:58 Vital Signs Date Time Temp Pulse Resp B/P (MAP) Pulse Ox O2 Delivery O2 Flow Rate FiO2 10/14/24 14:25 97.5 79 20 128/68 97 Room Air* 0 21 10/14/24 13:52 97.5 79 20 128/68 96 Room Air 0 DX & DISP Disposition: Discharge Departure Impression: Primary Impression: Candidal vaginitis Additional Impression: UTI (urinary tract infection) Condition: Stable Scripts Fluconazole (Fluconazole) 150 Mg Tablet 1 TAB PO ONCE for 1 Day, #1 TAB 0 Refills Prov: TG ESTRADA MD 10/14/24 Sulfamethoxazole/Trimethoprim (Bactrim Ds Tablet) 800 Mg-160 Mg Tablet 1 TAB PO BID for 5 Days, #20 TAB 0 Refills Prov: TG ESTRADA MD 10/14/24 Referrals: ARLETH BURKETT (PCP) TG ESTRADA MD Oct 14, 2024 16:21
[2024-10-14 16:55] VITALS: BP 122/64; PULSE 72; RESP 20; TEMP 97.5; O2SAT 96
== END 2024-10-14 16:56 | disposition home or self-care (01) ==
LOC: EDH 13:17
DX: B37.31 Acute candidiasis of vulva and vagina (principal); N39.0 Urinary tract infection, site not specified; R10.2 Pelvic and perineal pain; E66.01 Morbid (severe) obesity due to excess calories; Z79.1 Long term (current) use of non-steroidal anti-inflammatories (NSAID); Z79.899 Other long term (current) drug therapy
CPT/HCPCS: 36415; 80048; 81001; 84702; 84703; 85025; 87086; 87186; 99283

== ENCOUNTER 2025-05-17 20:00 | Emergency (ER) | payer MEDICAID ==
[~2025-05-17] VITALS: Ht 160 cm; Wt 105.2 kg
[~2025-05-17 20:00] MED LIST changes: +FLUC150T48 PO; +SULF1TAB42 PO
--- NOTE | 2025-05-17 20:23 | ERN ---
ED Note History of Present Illness Stated Complaint: C/O BLOOD IN URINE X 2 DAYS Chief Complaint: Blood in Urine: Time Seen by MD: 20:02 Time Seen by Midlevel: 20:02 Dictation: The patient is a 30-year-old female with a history of hysterectomy who presents to the emergency department with complaints of blood in urine or possibly blood in stool. Patient reports she had a bowel movement and when she wiped there was blood with a an reports that when she urinated there was she was not sure where it was coming from. Patient denies any nausea, vomiting, diarrhea. Reports occasional constipation. Denies any fevers Allergies: Coded Allergies: No Known Allergies (Unverified Allergy, Unknown, 04/10/21) Home Meds Active Scripts Nitrofurantoin Monohyd/M-Cryst (Macrobid 100 mg Capsule) 100 Mg Capsule, 1 CAP PO BID for 5 Days, #10 CAP 0 Refills Prov:JOSÉ MANUEL RAMIREZ [employer] 05/17/25 Fluconazole (Fluconazole) 150 Mg Tablet, 1 TAB PO ONCE for 1 Day, #1 TAB 0 Refills Prov:TG ESTRADA MD 10/14/24 Sulfamethoxazole/Trimethoprim (Bactrim Ds Tablet) 800 Mg-160 Mg Tablet, 1 TAB PO BID for 5 Days, #20 TAB 0 Refills Prov:TG ESTRADA MD 10/14/24 Nirmatrelvir/Ritonavir (Paxlovid Co-Pack (Eua)) 1 Each Tablet, 1 EACH PO BID for 5 Days, #1 BOX Prov:TALAT WHEATLEY NP 03/16/23 Ibuprofen (Motrin/Advil) 800 Mg Tab, 800 MG PO TID, #30 TAB Prov:ARLINE DELANEY MD 03/15/23 Naproxen (Naproxen) 250 Mg Tablet, 500 MG PO BID for 7 Days, #14 TAB Prov:SHADY CHOW MD 03/13/22 Clindamycin HCl (Clindamycin HCl) 300 Mg Capsule, 300 MG PO QID for 7 Days, #28 CAP Prov:SHADY CHOW MD 03/13/22 Ibuprofen (Ibuprofen) 600 Mg Tablet, 600 MG PO Q6H PRN for PAIN, #30 TAB Prov:JOHNNY LARIOS MD 01/18/22 Methylprednisolone (Medrol) 4 Mg Tab.ds.pk, 4 MG PO AD, #1 KIT Prov:JOHNNY LAIROS MD 01/18/22 Amoxicillin/Potassium Clav (Amox Tr-K Clv 875-125 mg Tab) 1 Each Tablet, 1 EACH PO BID for 10 Days, #20 TAB Prov:JOHNNY LARIOS MD 01/18/22 Ibuprofen (Ibu) 400 Mg Tablet, 800 MG PO TID, #60 TAB Prov:WENDY WEISS 12/28/21 Clindamycin HCl (Clindamycin HCl) 300 Mg Capsule, 1 CAP PO QID for 10 Days, #40 CAP 0 Refills Prov:WENDY WEISS 12/28/21 Amoxicillin/Potassium Clav (Augmentin 875-125 Tablet) 1 Each Tablet, 1 TAB PO BID for 7 Days, #14 TAB 0 Refills Prov:JOHNNY LARIOS MD 09/01/21 Budesonide (Rhinocort Allergy) 8.43 Ml [place].pump, 1 SPRY NS BID, #1 BOTTLE Prov:TALAT NA NP 07/16/21 Amoxicillin/Potassium Clav (Augmentin 875-125 Tablet) 1 Each Tablet, 1 TAB PO BID for 10 Days, #20 TAB 0 Refills Prov:TALAT AN NP 07/16/21 Vit No.78/Iron/FA (Prenatabs FA Tablet) 1 Each Tablet, 1 EACH PO DAILY, #100 TAB Prov:WENDY WEISS 04/10/21 Acetaminophen (Tylenol) 325 Mg Tablet, 650 MG PO QID, #50 TAB Prov:WENDY WEISS 04/10/21 Cephalexin Monohydrate (Keflex) 500 Mg Cap, 500 MG PO TID, #21 CAP Prov:WENDY WEISS 04/10/21 Past Medical History Past Medical History: Diabetes-Type II Additional Past Medical Hx: Morbid obese Surgical History: Hysterectomy, Family History: Negative Social History: Negative, Lives with family History: Not Applicable : 3 Para: 2 RN Note Reviewed/Agreed w/PFSH: Yes Review of System Dictation Constitutional: Negative for fever,chills, and weight loss Eyes: Negative for injury, pain,redness, and discharge ENT: Negative for injury,pain or swelling Cardiovascular: Negative for chest pain, palpitations, and edema Respiratory: Negative for shortness of breath, cough, and wheezing, Abdomen/GI: Negative for abdominal pain, nausea, vomiting, diarrhea, and constipation Back: Negative for injury and pain : Positive for bloody urination MS/Extremity: Negative for injury and deformity Skin: Negative for rash, and discoloration Neuro: Negative for headache, weakness, numbness, tingling, and seizure Psych: Negative for suicide ideation, homicidal ideation, and hallucinations Initial Vital Sign VS Vital Signs Date Time Temp Pulse Resp B/P (MAP) Pulse Ox O2 Delivery O2 Flow Rate FiO2 05/17/25 20:02 98.4 81 20 126/74 98 Room Air 05/17/25 20:29 0 21 Physical Exam Dictation Vital Signs reviewed General Appearance: Alert, oriented x 3, no acute distress, well developed, nourished. Head and Face: non-traumatic. Eyes: PERRL, pink conjunctivas, eyelid no trauma, anterior chamber with arcus senilis. Ears: Pinnas intact and no signs of trauma or erythema ear canals clear and no discharge TM no erythema Nose: No discharge, no bleeding. Oropharynx: Mouth normal, tongue pink. pharynx clear,no erythema, tonsils no exudates, no abscesses noted, mucous membrane moist Neck: Supple, non-tender, no thyromegaly, no masses, no JVD, no bruits Breast:Deferred Chest:No tenderness, no crepitus, no paradoxical movement, no retractions Lungs:Clear, well-ventilated, symmetric, no rales, no wheezing, no rhonchi, no stridor, good breath sounds bilaterally Heart: Regular rate, regular rhythm, no murmur, no gallops Vascular: no peripheral edema, Abdomen: Soft, positive bowel sounds, nondistended, no guarding, nontender, no rebound, no masses no hepatomegaly, no splenomegaly, no Menchaca's sign, no hernias. Rectal: Deferred Genital: Deferred Neurological: Normal speech, motor function intact, sensory function intact Musculoskeletal: Neck nontender, full range of motion, back nontender, full range of motion, Extremities: nontender, full range of motion Skin: Color pink, dry, no turgor, no rash, no lacerations, no abrasions, no contusions. Lymphatic: Deferred Results (Laboratory/Radiology) Laboratory/Radiology Laboratory Tests Test 05/17/25 20:10 05/17/25 20:35 Urine Color LIGHT-YELLOW (YELLOW) Urine Appearance CLEAR (CLEAR) Urine pH 5.0 (5.0-8.0) Urine Specific [place] 1.024 (1.001-1.031) Urine Protein NEGATIVE mg/dL (NEGATIVE) Urine Glucose (UA) >=1000 mg/dL (NEGATIVE) H Urine Ketones NEGATIVE mg/dL (NEGATIVE) Urine Occult Blood NEGATIVE (NEGATIVE) Urine Nitrate NEGATIVE (NEGATIVE) Urine Bilirubin NEGATIVE mg/dL (NEGATIVE) Urine Urobilinogen 0.2 mg/dL (0.2-1.0) Urine Leukocyte Esterase 75 Jose/uL (NEGATIVE) H Urine RBC 2-5 /HPF (0-1) H Urine WBC 11-25 /HPF (0-1) H Urine Squamous Epithelial Cells FEW /HPF (0-2) Urine Bacteria None /HPF (None Seen) Urine Hyaline Casts 2-5 /LPF (0-1 /LPF) H White Blood Count 11.5 K/uL (4.8-10.8) H Red Blood Count 3.91 MIL/uL (4.00-5.50) L Hemoglobin 11.4 g/dL (12.0-16.0) L Hematocrit 34.7 % (36-48) L Mean Corpuscular Volume 88.7 fL (79-99) Mean Corpuscular Hemoglobin 29.2 pg (27.0-33.0) Mean Corpuscular Hemoglobin Concent 32.9 g/dL (32.0-36.0) Red Cell Distribution Width 12.2 % (11.0-15.5) Platelet Count 372 K/uL (130-400) Mean Platelet Volume 10.0 fL (7.5-10.5) Immature Granulocyte % (Auto) 0.4 % (0-1) Neutrophils (%) (Auto) 67.2 % (40.0-77.0) Lymphocytes (%) (Auto) 26.9 % (21.0-51.0) Monocytes (%) (Auto) 3.6 % (3.0-13.0) Eosinophils (%) (Auto) 1.6 % (0.0-8.0) Basophils (%) (Auto) 0.3 % (0.0-5.0) Neutrophils # (Auto) 7.7 K/uL (1.8-7.7) Lymphocytes # (Auto) 3.1 K/uL (1.0-4.8) Monocytes # (Auto) 0.4 K/uL (0.1-1.0) Eosinophils # (Auto) 0.19 K/uL (0.00-0.70) Basophils # (Auto) 0.04 K/uL (0.00-0.20) Absolute Immature Granulocyte (auto 0.05 K/uL (0-1) Nucleated Red Blood Cells 0.0 % (0.0-0.19) Sodium Level 135 mmol/L (136-145) L Potassium Level 4.3 mmol/L (3.5-5.1) Chloride Level 100 mmol/L (101-111) L Carbon Dioxide Level 31 mmol/L (21-32) Blood Urea Nitrogen 18 mg/dL (7-18) Creatinine 0.5 mg/dL (0.5-1.0) Glomerular Filtration Rate Calc 129 mL/min (>90) Random Glucose 266 mg/dL (70-105) H Total Calcium 9.3 mg/dL (8.5-10.1) Labs Reviewed?: Yes ED Course ED Course Orders Procedure Category Date Status Time Urinalysis Profile LAB 05/17/25 Complete 20:13 Cbc With Differential LAB 05/17/25 Complete 20:13 Basic Metabolic Panel LAB 05/17/25 Complete 20:13 Culture Urine SOHAM 05/17/25 Logged 20:45 Ceftriaxone 1g Vial PHA 05/17/25 In Process (Rocephine 1g Inj) 21:30 Current Medications Medications (Trade) Dose Ordered Sig/Jessica Route PRN Reason Start Time Stop Time Status Last Admin Dose Admin Ceftriaxone Sodium (ROCEphine 1G INJ) 1 gm ONCE ONCE IM 05/17/25 21:30 05/17/25 21:31 Vital Signs Date Time Temp Pulse Resp B/P (MAP) Pulse Ox O2 Delivery O2 Flow Rate FiO2 05/17/25 20:29 98.2 80 18 121/70 98 Room Air* 0 21 05/17/25 20:02 98.4 81 20 126/74 98 Room Air Medical Decision Making MDM The patient is a 30-year-old female with a history of hysterectomy who presents to the emergency department with complaints of blood in urine or possibly blood in stool. Patient reports she had a bowel movement and when she wiped there was blood with a an reports that when she urinated there was she was not sure where it was coming from. Patient denies any nausea, vomiting, diarrhea. Reports occasional constipation. Denies any fevers BC showed mild leukocytosis, mild normocytic anemia, chemistry showed mild hyperglycemia, mild hyponatremia, mild hypochloremia. At this time patient does not want to wait for any IV fluids. Patient's urinalysis positive for leukocyte esterase. We will treat patient for UTI. Patient refuses any rectal exam but denies any current bleeding. Reports it was only one episode yesterday. Patient with no tachycardia, nontoxic appearance. Will be discharged to follow up with PCP. Differential diagnosis: UTI, rectal bleeding, electrolyte imbalance Need for hospitalization: Patient does not meet criteria for hospitalization. There are no social concerns with this patient. DX & DISP Disposition: Discharge Departure Impression: Primary Impression: UTI (urinary tract infection) Additional Impression: Elevated random blood glucose level Condition: Stable Scripts Nitrofurantoin Monohyd/M-Cryst (Macrobid 100 mg Capsule) 100 Mg Capsule 1 CAP PO BID for 5 Days, #10 CAP 0 Refills Prov: JOSÉ MANUEL RAMIREZ 05/17/25 Additional Instructions: You have a urinary tract infection. take your antibiotics as prescribed. Your blood glucose was also elevated. You will have to follow up with your doctor about this. If anything worsens please return to ER. FOLLOW-UP WITH PRIMARY CARE PROVIDER IN 1 TO 2 DAYS. TAKE MEDICATIONS DIRECTED HERE IN THE EMERGENCY ROOM. OKAY TO CONTINUE HOME MEDICATIONS UNLESS OTHERWISE DISCUSSED DURING YOUR VISIT IN THE EMERGENCY ROOM TODAY. RETURN TO YOUR NEAREST EMERGENCY ROOM IF SYMPTOMS WORSEN OR IF THERE IS NO IMPROVEMENT. CALL 911 IF YOU NEED IMMEDIATE ASSISTANCE. TAKE TYLENOL [id number] NEEDED AND IF NO CONTRAINDICATIONS ARE PRESENT. INCREASE ORAL HYDRATION. A WOUND CULTURE OR URINE CULTURE WAS ORDERED HERE IN THE EMERGENCY ROOM DEPARTMENT PLEASE FOLLOW-UP WITH PRIMARY CARE PROVIDER AND ADVISE THEM TO GET REPEAT PORTS FROM OUR FACILITY. IF YOU HAD ANY ELLA WRAP/SPLINTS THAT WERE APPLIED HERE, PLEASE DO NOT REMOVE THEM UNTIL YOU SEE YOUR PRIMARY CARE OR SPECIALTY. Referrals: ARLETH BURKETT (PCP) Time of Disposition: 21:17 I have reviewed the case, and I agree with, Diagnosis and Plan JOSÉ MANUEL RAMIREZ May 17, 2025 20:23
[2025-05-17 20:40] LABS: APPEARANCE,URINE CLEAR (CLEAR); GLUCOSE, URINE (UA) >=1000 mg/dL (NEGATIVE); LEUKOCYTE ESTERASE ,URINE 75 Leu/uL (NEGATIVE); NITRATE,URINE NEGATIVE (NEGATIVE); OCCULT BLOOD,URINE NEGATIVE (NEGATIVE)
[2025-05-17 20:43] LABS: ADD UA MICROSCOPIC YES
[2025-05-17 20:49] LABS: IMMATURE GRANULOCYTE ABSOLUTE 0.05 K/uL (0-1); NUCLEATED RED BLOOD CELLS 0.0 % (0.0-0.19); PLATELET COUNT (AUTO) 372 K/uL (130-400); RED BLOOD CELL COUNT(AUTO) 3.91 MIL/uL (4.00-5.50); RED CELL DISTRIBUTION WIDTH 12.2 % (11.0-15.5); WHITE BLOOD COUNT (AUTO) 11.5 K/uL (4.8-10.8)
[2025-05-17 20:50] LABS: SQUAMOUS EPITHELIAL CELL,UR FEW /HPF (0-2)
[2025-05-17 21:02] LABS: CREATININE 0.5 mg/dL (0.5-1.0); GLOMERULAR FILTR. RATE CALC 129.0 mL/min (>90); GLUCOSE,RANDOM 266.0 mg/dL (70-105); SODIUM SERUM 135.0 mmol/L (136-145); UREA NITROGEN, BLOOD 18.0 mg/dL (7-18)
[2025-05-17] MEDS ORDERED: NITR100C4 PO (21:17)
[2025-05-17 22:39] VITALS: BP 128/75; PULSE 78; RESP 18; TEMP 98.3; O2SAT 98
== END 2025-05-17 22:51 | disposition home or self-care (01) ==
LOC: EDH 20:00
DX: N39.0 Urinary tract infection, site not specified (principal); E11.9 Type 2 diabetes mellitus without complications; E66.01 Morbid (severe) obesity due to excess calories; Z79.1 Long term (current) use of non-steroidal anti-inflammatories (NSAID); Z90.710 Acquired absence of both cervix and uterus; Z68.41 Body mass index [BMI] 40.0-44.9, adult
CPT/HCPCS: 99283; 80048; 85025; 87086 ×2; 87186; 81001; 36415; 96372; J0696

== ENCOUNTER 2025-06-16 17:04 | Emergency (ER) | payer MEDICAID ==
[~2025-06-16 17:04] MED LIST changes: +IBUP-1492 PO; -IBUP-2070 PO; +NITR100C4 PO
[2025-06-16 19:59] LABS: RAPID GROUP A STREP negative (NEGATIVE)
[2025-06-16 20:01] LABS: SARS-CoV-2, RNA, NAAT NEGATIVE SARS CoV-2 (NEGATIVE)
[2025-06-16 20:06] LABS: INFLUENZA TYPE A Negative For Type A (NEGATIVE); INFLUENZA TYPE B Negative For Type B (NEGATIVE)
[2025-06-16 20:11] VITALS: BP 159/76; PULSE 96; RESP 20; TEMP 98.1; O2SAT 97
[2025-06-16] MEDS ORDERED: METH4TAB3 PO (20:20)
[2025-06-16] MEDS ORDERED: AZIT250T9 PO (20:20)
--- NOTE | 2025-06-16 20:21 | ERN ---
General Chief Complaint: Sore Throat Stated Complaint: SORE THROAT Time Seen by MD: 17:07 Time Seen by Midlevel: 17:07 Source: patient History of Present Illness Initial Comments Patient is a 30-year-old female presenting to the ER for evaluation for sore throat that started a proximally a week ago. Denies sick contacts denies other symptoms Allergies: Coded Allergies: No Known Allergies (Unverified Allergy, Unknown, 04/10/21) Home Meds Active Scripts Nitrofurantoin Monohyd/M-Cryst (Macrobid 100 mg Capsule) 100 Mg Capsule, 1 CAP PO BID for 5 Days, #10 CAP 0 Refills Prov:JOSÉ MANUEL RAMIREZ [employer] 05/17/25 Fluconazole (Fluconazole) 150 Mg Tablet, 1 TAB PO ONCE for 1 Day, #1 TAB 0 Refills Prov:TG ESTRADA MD 10/14/24 Sulfamethoxazole/Trimethoprim (Bactrim Ds Tablet) 800 Mg-160 Mg Tablet, 1 TAB PO BID for 5 Days, #20 TAB 0 Refills Prov:TG ESTRADA MD 10/14/24 Nirmatrelvir/Ritonavir (Paxlovid Co-Pack (Eua)) 1 Each Tablet, 1 EACH PO BID for 5 Days, #1 BOX Prov:TALAT WHEATLEY NP 03/16/23 Ibuprofen (Motrin/Advil) 800 Mg Tab, 800 MG PO TID, #30 TAB Prov:ARLINE DELANEY MD 03/15/23 Naproxen (Naproxen) 250 Mg Tablet, 500 MG PO BID for 7 Days, #14 TAB Prov:SHADY CHOW MD 03/13/22 Clindamycin HCl (Clindamycin HCl) 300 Mg Capsule, 300 MG PO QID for 7 Days, #28 CAP Prov:SHADY CHOW MD 03/13/22 Ibuprofen (Ibuprofen) 600 Mg Tablet, 600 MG PO Q6H PRN for PAIN, #30 TAB Prov:JOHNNY LARIOS MD 01/18/22 Methylprednisolone (Medrol) 4 Mg Tab.ds.pk, 4 MG PO AD, #1 KIT Prov:JOHNNY LARIOS MD 01/18/22 Amoxicillin/Potassium Clav (Amox Tr-K Clv 875-125 mg Tab) 1 Each Tablet, 1 EACH PO BID for 10 Days, #20 TAB Prov:JOHNNY LARIOS MD 01/18/22 Ibuprofen (Ibu) 400 Mg Tablet, 800 MG PO TID, #60 TAB Prov:WENDY WEISS 12/28/21 Clindamycin HCl (Clindamycin HCl) 300 Mg Capsule, 1 CAP PO QID for 10 Days, #40 CAP 0 Refills Prov:WENDY WEISS 12/28/21 Amoxicillin/Potassium Clav (Augmentin 875-125 Tablet) 1 Each Tablet, 1 TAB PO BID for 7 Days, #14 TAB 0 Refills Prov:JOHNNY LARIOS MD 09/01/21 Budesonide (Rhinocort Allergy) 8.43 Ml [place].pump, 1 SPRY NS BID, #1 BOTTLE Prov:TALAT AN NP 07/16/21 Amoxicillin/Potassium Clav (Augmentin 875-125 Tablet) 1 Each Tablet, 1 TAB PO BID for 10 Days, #20 TAB 0 Refills Prov:TALAT AN NP 07/16/21 Vit No.78/Iron/FA (Prenatabs FA Tablet) 1 Each Tablet, 1 EACH PO DAILY, #100 TAB Prov:WENDY WEISS 04/10/21 Acetaminophen (Tylenol) 325 Mg Tablet, 650 MG PO QID, #50 TAB Prov:WENDY WEISS 04/10/21 Cephalexin Monohydrate (Keflex) 500 Mg Cap, 500 MG PO TID, #21 CAP Prov:WENDY WEISS 04/10/21 Past Medical History Past Medical History: Diabetes-Type II Medical History Other: Morbid obese Past Surgical History: Family History Family History: Negative Social History Social History: Negative, Lives with family Female( History) History: Not Applicable : 3 Para: 2 ROS Dictation CONSTITUTIONAL: Negative except for HPI HEAD/FACE: Negative except for HPI EENT: Negative except for HPI RESPIRATORY: Negative except for HPI GASTROINTESTINAL/ABDOMINAL: Negative except for HPI GENITOURINARY: Negative except for HPI MUSCULOSKELETAL: Negative except for HPI INTEGUMENTARY: Negative except for HPI NEUROLOGICAL/PSYCH: Negative except for HPI HEMATOLOGIC/LYMPHATIC: Negative except for HPI All Systems Negative, Except as noted above. 13 point review of systems assessed and all negative except for above. Physical Exam Physical Exam Dictation Vital Signs reviewed General Appearance: Alert, oriented x 3, no acute distress, well developed, nourished. Head and Face: non-traumatic. Eyes: PERRL, pink conjunctivas, eyelid no trauma, anterior chamber with arcus senilis. Ears: Pinnas intact and no signs of trauma or erythema ear canals clear and no discharge TM no erythema Nose: No discharge, no bleeding. Oropharynx: Mouth normal, tongue pink, Erythema to the posterior oropharynx, tonsils no exudates, no abscesses noted, mucous membrane moist Neck: Supple, non-tender, no thyromegaly, no masses, no JVD, no bruits Breast:Deferred Chest:No tenderness, no crepitus, no paradoxical movement, no retractions Lungs:Clear, well-ventilated, symmetric, no rales, no wheezing, no rhonchi, no stridor, good breath sounds bilaterally Heart: Regular rate, regular rhythm, no murmur, no gallops Vascular: no peripheral edema, Abdomen: Soft, positive bowel sounds, nondistended, no guarding, nontender, no rebound, no masses no hepatomegaly, no splenomegaly, no Menchaca's sign, no hernias. Rectal: Deferred Genital: Deferred Neurological: Normal speech, motor function intact, sensory function intact Musculoskeletal: Neck nontender, full range of motion, back nontender, full range of motion, Extremities: nontender, full range of motion Skin: Color pink, dry, no turgor, no rash, no lacerations, no abrasions, no contusions. Lymphatic: Deferred Results Laboratory and Microbiology Lab and Micro Result Laboratory Tests Test 06/16/25 19:42 Influenza Type A Antigen Negative For Type A Influenza Type B Antigen Negative For Type B SARS-CoV-2, RNA, NAAT NEGATIVE SARS CoV-2 Group A Streptococcus Rapid negative (NEGATIVE) Labs Reviewed?: Yes MDM MDM: Differential diagnosis: Viral illness, upper respiratory infection, strep pharyngitis There are no social concerns with this patient. Prescription drug management Prescriptions will include: Azithromycin Medical management and examination interpretation discussions were had by me with other qualified healthcare professionals as indicated for the patient's c are. ED Course Orders Procedure Category Date Status Time Covid Rna Naat LAB 06/16/25 Complete 17:16 Influenza Type A & B, LAB 06/16/25 Complete Rapid 17:16 Rapid (Group A Strep) LAB 06/16/25 Complete 17:16 Dexamethasone 4mg/Ml PHA 06/16/25 Complete 1ml Vial (Dexametha 19:00 Dexamethasone 4mg/Ml PHA 06/16/25 Complete 1ml Vial (Dexametha 18:56 Current Medications Medications (Trade) Dose Ordered Sig/Jessica Route PRN Reason Start Time Stop Time Status Last Admin Dose Admin Dexamethasone Sodium Phosphate (dexaMETHasone 4MG/ML 1ML VIAL) 4 mg ONCE ONCE IM 06/16/25 19:00 06/16/25 19:01 DC Dexamethasone Sodium Phosphate (dexaMETHasone 4MG/ML 1ML VIAL) 4 mg STK-MED ONCE .ROUTE 06/16/25 18:56 06/16/25 18:56 DC 06/16/25 18:59 Vital Signs Date Time Temp Pulse Resp B/P (MAP) Pulse Ox O2 Delivery O2 Flow Rate FiO2 06/16/25 20:11 98.1 96 20 159/76 97 Room Air* 0 21 06/16/25 17:08 98.1 108 20 159/76 97 Room Air* 0 21 06/16/25 17:05 98.1 108 20 159/76 97 Room Air 0 DX & DISP Disposition: Discharge Departure Impression: Primary Impression: Pharyngitis Condition: Stable Scripts Methylprednisolone (Medrol) 4 Mg Tab.ds.pk 1 TAB PO AD for 6 Days, #21 TAB 0 Refills 6 on day 1 then reduce by one tablet daily until gone Prov: JOVANNY HOUGH 06/16/25 Azithromycin (Azithromycin) 250 Mg Tablet 1 TAB PO AD for 5 Days, #6 TAB 0 Refills 2 the first day followed by 1 for days 2-5 Prov: JOVANNY HOUGH 06/16/25 Additional Instructions: You have tested negative for influenza a, influenza B, COVID-19, and strep. I have given you a prescription for azithromycin and Medrol pack which should help improve your symptoms over the next couple of days. Referrals: ARLETH BURKETT (PCP) Time of Disposition: 20:19 I have reviewed the case, and I agree with, Diagnosis and Plan I performed the substantive portion of the visit. I have reviewed and pe rsonally made and approve the management plan that is documented in the note by myself or the DEYSI. I acknowledge for responsibility for the patient's management plan. JOVANNY HOUGH Jun 16, 2025 20:20
== END 2025-06-16 20:25 | disposition home or self-care (01) ==
LOC: EDH 17:04
DX: J02.9 Acute pharyngitis, unspecified (principal); E11.9 Type 2 diabetes mellitus without complications; E66.01 Morbid (severe) obesity due to excess calories; Z20.822 Contact with and (suspected) exposure to COVID-19; Z79.1 Long term (current) use of non-steroidal anti-inflammatories (NSAID)
CPT/HCPCS: 99283; 87635; 87880; 87804 ×2; 96372; J1100